=== PATIENT | male | born 1995 ===

== ENCOUNTER 2017-04-29 12:03 | Emergency (ER) | payer OTHER ==
[2017-04-29 12:09] VITALS: BP 102/61; PULSE 76; RESP 20; TEMP 98.3; O2SAT 97
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
== END 2017-04-29 13:18 | disposition home or self-care (01) ==
LOC: C.ER 12:03
DX: M25.561 Pain in right knee (principal); S06.9X0D Unspecified intracranial injury without loss of consciousness, subsequent encounter; V09.9XXD Pedestrian injured in unspecified transport accident, subsequent encounter